=== PATIENT | female | born 1955 | race Caucasian/White ===

== ENCOUNTER 2023-12-16 17:12 | Inpatient (IN) | payer OTHER, SELFPAY ==
[2023-12-16] VITALS (12 sets, daily range): BP systolic 112–168; BP diastolic 63–120; BMI 23.7
--- NOTE | 2023-12-16 09:16 | ED.GENMED ---
History of Present Illness
<Yuliana Vences PA-C - Last Filed: 12/16/23 22:37>
General
Chief Complaint: Abdominal Symptoms
Source: patient
Exam Limitations: none
Time Seen by Provider: 12/16/23 08:59
Nursing documentation reviewed up to this point in time: agreed with
Travel History
Have you had any contact with someone who has COVID-19?: No
Do you have any symptoms of coronavirus? Fever > 100 degrees, chills, cough, shortness of breath, sore throat, loss of taste or smell, muscle aches, or headache?: No
History of Present Illness
History of Present Illness:
Patient is a 8-year-old female with history of primary biliary cirrhosis, autoimmune hepatitis, known gallstones presenting for evaluation of right upper quadrant abdominal pain with associated nausea. Patient states symptoms started yesterday
around 4 PM after eating a soft pretzel and some water. Pain was constant in the right upper quadrant until about 10 PM when she went to bed. She did have 1 episode of vomiting yesterday afternoon. She states that she felt somewhat better when
she woke up this morning but after eating yogurt and coffee the pain returned in the right upper quadrant has been constant since. While driving to the emergency room today she did state that she felt the pain was radiating to her back. She
endorses nausea but no vomiting this morning. She denies any fever, chills, diarrhea, constipation, urinary symptoms. She denies any chest pain, shortness of breath.
Patient reports social alcohol drinking. She is not a smoker and denies any other drug use. Patient denies any history of abdominal surgeries.
Patient does have a history of primary biliary cirrhosis and autoimmune hepatitis that is not currently treated. She did have an ultrasound performed last July which showed evidence of gallstones. She denies any episodes of pain prior.
Past History
<Yuliana Vences PA-C - Last Filed: 12/16/23 22:37>
Past History
ED Past Medical History: Cancer (Melanoma) and Other (Autoimmune hepatitis, primary biliary cirrhosis)
ED Past Surgical History: Orthopedic (Right knee surgery)
Social History
Tobacco: Non-smoker
Alcohol: Occasional
Drug: None
Living: with family
Family History
Family History: Other
Phy Exam
<Yuliana Vences PA-C - Last Filed: 12/16/23 22:37>
Physical Exam
Physical Exam:
General: Mild distress due to pain and non-toxic
Vitals: Hypertensive, otherwise vital signs stable; afebrile
HEENT: Atraumatic, normocephalic; pupils equal round and reactive to light bilaterally, extraocular muscles intact, protecting airway
Neck: appears supple, normal range of motion, no meningeal signs
CV: Regular rate and rhythm, heart sounds normal, no evidence of cyanosis
Resp: No evidence of respiratory distress, lungs clear bilaterally
Abd: Soft, tender in right upper quadrant epigastric region without rebound or guarding, non-distended; no CVA tenderness
Extremities: No deformities, no evidence of cyanosis or edema; deep PT pulses palpable and equal bilaterally
Neuro: alert and oriented x 3; grossly intact
Psych: Normal affect
Skin: Intact, no rashes
Course
<Yuliana Vences PA-C - Last Filed: 12/16/23 22:37>
Orders/Labs/Results
Orders:
Orders
12/16/23 09:15
0.9% Sodium Chloride 1000 ml [Nss] 1,000 ml IV BOLUS
HYDROmorphone [Dilaudid] 0.5 mg IV NOW STA
Ondansetron Injectable [Zofran] 4 mg IV NOW STA
US Abdomen Complete/Upper Urgent
Comment:
Reason For Exam: RUQ pain, known history gallstones
12/16/23 09:22
Complete Blood Count/With Diff Urgent
Comprehensive Metabolic Panel Urgent
Lipase Urgent
12/16/23 Lunch
Regular
12/16/23 12:55
INR [Prothrombin Time] Routine
12/16/23 13:05
MR Abdomen W/o & W Contrast Routine
Comment:
Reason For Exam: hx PBC increased LFT's
Recent pill cam endoscopy?: No
12/16/23 15:53
Consult Interventional Radiology [IRAD CONSULT] Routine
Consulting Provider: Ruth Ann Tsai
Was physician already notified: Yes
Reason for consult: elevated LFT and abd pain h/o AIH and PBC
12/16/23 16:48
Admit/Transfer Patient As Directed
Co-Sign Provider:
Level of Care: Inpatient admission
Assign to:: Medical/Surgical
Physician / Group: Gerardo
Diagnosis: Abdo pain with significant abnormal LFTs
Reason for Hospitalization: see progress note
Expected length of stay greater than two midnights?: Yes
ELOS- Estimated Length of Stay in days: 3
I certify the patient meets the requirements for IP care: Yes
12/16/23 16:49
Code Status As Directed
Resuscitation Status: Full Code
12/16/23 17:00
Ursodiol [Actigall] 300 mg PO DAILY
12/16/23 18:46
Acetaminophen [Tylenol] 650 mg PO Q4HPRN PRN
Enoxaparin Sodium [Lovenox] 40 mg SC QPM
12/16/23 18:46
GASTROINTESTINAL CONSULT Routine
Consulting Provider: Keisha Pedroza
Was physician already notified: Yes
Reason for consult: abnormal LFTs
Activity As Directed
Activity Level: As Tolerated
I&O [Intake/ Output] As Directed
Frequency: q12h
DX Deep Vein Thrombosis Video Routine
12/17/23 Breakfast
NPO
Allow oral meds: Yes
Allow clear liquids: 4hrs prior to procedure
NPO with Ice Chips: Yes
Comment: may have unrestricted clear liquid up to 4 hrs prior to scheduled procedure
Comprehensive Metabolic Panel IN AM
Abnormal Lab Results
12/16/23
09:22
Absolute Lymphs (auto) 1.0 L 10^3/uL
(1.2-3.4)
Lymphocytes % 17.2 L %
(20.5-51.1)
Potassium 3.4 L mmol/L
(3.5-5.1)
Glucose 109 H mg/dl
(70-99)
Total Bilirubin 1.8 H mg/dl
(0.2-1.3)
AST 139 H U/L
(14-36)
ALT 131 H U/L
(0-35)
Alkaline Phosphatase 728 H U/L
(38-126)
12/16/23 09:22
12/16/23 09:22
Vital Signs
Initial and Last Documented VS:
Initial Vital Signs
Temp Pulse Resp BP Pulse Ox
97.7 F 68 16 168/120 98
12/16/23 08:53 12/16/23 08:53 12/16/23 08:53 12/16/23 08:53 12/16/23 08:53
Last Documented Vital Signs
Temp Pulse Resp BP Pulse Ox
97.8 F 68 18 136/71 98
12/16/23 18:40 12/16/23 18:40 12/16/23 18:40 12/16/23 18:40 12/16/23 18:40
Bernardinolt;Brock Boyd, - Last Filed: 12/16/23 11:41>
Orders/Labs/Results
Orders:
Orders
12/16/23 09:15
0.9% Sodium Chloride 1000 ml [Nss] 1,000 ml IV BOLUS
HYDROmorphone [Dilaudid] 0.5 mg IV NOW STA
Ondansetron Injectable [Zofran] 4 mg IV NOW STA
US Abdomen Complete/Upper Urgent
Comment:
Reason For Exam: RUQ pain, known history gallstones
12/16/23 09:22
Complete Blood Count/With Diff Urgent
Comprehensive Metabolic Panel Urgent
Lipase Urgent
12/16/23 Lunch
Regular
12/16/23 12:55
INR [Prothrombin Time] Routine
12/16/23 13:05
MR Abdomen W/o & W Contrast Routine
Comment:
Reason For Exam: hx PBC increased LFT's
Recent pill cam endoscopy?: No
12/16/23 15:53
Consult Interventional Radiology [IRAD CONSULT] Routine
Consulting Provider: Ruth Ann Tsai
Was physician already notified: Yes
Reason for consult: elevated LFT and abd pain h/o AIH and PBC
12/16/23 16:48
Admit/Transfer Patient As Directed
Co-Sign Provider:
Level of Care: Inpatient admission
Assign to:: Medical/Surgical
Physician / Group: Gerardo
Diagnosis: Abdo pain with significant abnormal LFTs
Reason for Hospitalization: see progress note
Expected length of stay greater than two midnights?: Yes
ELOS- Estimated Length of Stay in days: 3
I certify the patient meets the requirements for IP care: Yes
12/16/23 16:49
Code Status As Directed
Resuscitation Status: Full Code
12/16/23 17:00
Ursodiol [Actigall] 300 mg PO DAILY
12/16/23 18:46
Acetaminophen [Tylenol] 650 mg PO Q4HPRN PRN
Enoxaparin Sodium [Lovenox] 40 mg SC QPM
12/16/23 18:46
GASTROINTESTINAL CONSULT Routine
Consulting Provider: Keisha Pedroza
Was physician already notified: Yes
Reason for consult: abnormal LFTs
Activity As Directed
Activity Level: As Tolerated
I&O [Intake/ Output] As Directed
Frequency: q12h
DX Deep Vein Thrombosis Video Routine
12/17/23 Breakfast
NPO
Allow oral meds: Yes
Allow clear liquids: 4hrs prior to procedure
NPO with Ice Chips: Yes
Comment: may have unrestricted clear liquid up to 4 hrs prior to scheduled procedure
Comprehensive Metabolic Panel IN AM
Abnormal Lab Results
12/16/23
09:22
Absolute Lymphs (auto) 1.0 L 10^3/uL
(1.2-3.4)
Lymphocytes % 17.2 L %
(20.5-51.1)
Potassium 3.4 L mmol/L
(3.5-5.1)
Glucose 109 H mg/dl
(70-99)
Total Bilirubin 1.8 H mg/dl
(0.2-1.3)
AST 139 H U/L
(14-36)
ALT 131 H U/L
(0-35)
Alkaline Phosphatase 728 H U/L
(38-126)
12/16/23 09:22
12/16/23 09:22
Vital Signs
Initial and Last Documented VS:
Initial Vital Signs
Temp Pulse Resp BP Pulse Ox
97.7 F 68 16 168/120 98
12/16/23 08:53 12/16/23 08:53 12/16/23 08:53 12/16/23 08:53 12/16/23 08:53
Last Documented Vital Signs
Temp Pulse Resp BP Pulse Ox
97.8 F 68 18 136/71 98
12/16/23 18:40 12/16/23 18:40 12/16/23 18:40 12/16/23 18:40 12/16/23 18:40
<Yuliana Vences PA-C - Last Filed: 12/16/23 22:37>
MDM/Problems Addressed
Differential Diagnosis Includes:
Biliary colic, cholecystitis, choledocholithiasis, cholangitis, pancreatitis, appendicitis, GERD, gastritis,
MDM/Problems Addressed:
Patient is a 68-year-old female with history as documented presenting for evaluation of persistent right upper quadrant pain with associated nausea and vomiting since yesterday. Symptoms started after eating. No fever, chills, diarrhea,
constipation, urinary symptoms. Patient's vital signs are stable upon arrival, she is afebrile. Physical exam as document above. She is in mild distress due to pain, although nontoxic-appearing. She is moderately tender in right upper quadrant
without rebound or guarding. Given known history of gallstones�will check basic labs, lipase. Will check ultrasound. Dilaudid/Zofran. IV fluids. Will reassess.
Labs noted. CBC without any clinically significant abnormalities. CMP shows elevation in total bilirubin to 1.8. AST, ALT, alkaline phosphatase are all elevated. This does appear to be chronic based on patient's history of known primary biliary
cirrhosis and autoimmune hepatitis. Ultrasound is pending
10:50AM: Into reassess patient at bedside. Patient reports significant improvement in pain after Dilaudid. Resting much more comfortably. Ultrasound report pending
Ultrasound shows gallstones but no evidence of cholecystitis. There is an increase in dilation of CBD in comparison ultrasound performed 6 months ago. Discussed with GI. They recommend MRCP while in emergency department. MRCP pending
MRCP shows no evidence of obstructing stone in the CBD. Discussed with GI who spoke with tent assembler on-call. He recommends admission for liver biopsy tomorrow prior to initiating treatment. Interventional radiology has been consulted for liver
biopsy tomorrow. Discussed with hospitalist. Patient will be admitted.
Chronic conditions affecting care:
Primary biliary cirrhosis, autoimmune hepatitis, cholelithiasis
Acute Exacerbation and/or Progression of Chronic Illness:
N/A
<Yuliana Vences PA-C - Last Filed: 12/16/23 22:37>
*Radiology
Radiology exam reviewed: preliminary read by ED provider and radiology read reviewed
*Pulse Oximetry
Patient hypoxic: no
*EKG
Interpreted by ED Provider?: NA
*Dental Office Receptionist Interpretation
Rate: Dental Office Receptionist- N/A
*Critical Care Note
Total Time (30-74mins, 75-104mins- exclusive of procedures): Not Applicable
Data Reviewed
Review of Other/Old Records Reveals: Labs, Records and Radiology Studies
Source: patient and previous hospital records
<Yuliana Vences PA-C - Last Filed: 12/16/23 22:37>
Patient Management
Discussion with other providers: Hospitalist and Mobile Phlebotomist (GI)
Escalation/DeEscalation of care consider admission/obs:
Admit for liver biopsy
ED Attending Note
<Yuliana Vences PA-C - Last Filed: 12/16/23 22:37>
-
Portions of this chart may have been created with voice recognition software.� Occasional wrong word or��sound alike� substitutions may have occurred due to the inherent limitations of voice recognition software.
<Brock Boyd DO - Last Filed: 12/16/23 11:41>
ED Attending Note
Patient seen and examined by attending physician: Yes
I performed the substantive portion of visit, reviewed & personally made and approve the management plan that is documented in note by myself or ТАТЬЯНА.: Yes
I performed a history and physical exam of patient and discussed management with resident, I reviewed resident's note and agree with documented findings and plan of care.: Yes
ED Attending Note:
I evaluated the patient at bedside. The patient feels markedly improved after meds given. LFT abnormality is chronic however she does have a more distended CBD currently.
Discharge Plan
Departure
Patient Disposition: Admit
Date of Disposition: 12/16/23
Time of Disposition: 16:09
Presentation/result/management discussed w/ accepting MD/DO: Hospitalist
Discharge Problem:
Abdominal pain, Elevated liver enzymes
Interventions
Interventions:
*Risk Screen - Suicide Last Done: 12/16/23 09:23
*General Assessment Last Done: 12/16/23 09:23
*Neglect/Abuse Screening Last Done: 12/16/23 09:23
ED- Fall Risk Assessment Last Done: 12/16/23 18:30
*ED COVID-19 Vaccine History Last Done: 12/16/23 08:53
*Nursing Disposition Last Done: 12/16/23 18:30
YZ-Kmtdgj-Sdobohzexl Assessment Last Done: 12/16/23 09:24
Discharge Date and Time
Discharge Date/Time: 12/16/23 18:30
[2023-12-16] MEDS: NSS 1000 IV (09:28)
[2023-12-16] MEDS: ZOFRAN 4 MG IV (09:29)
[2023-12-16] MEDS: DILAUDID 0.5 MG IV (09:29)
[2023-12-16 09:52] LABS: % Basophils 0.9 % (0-2); % Eosinophils 3.6 % (0-6); % Immature Granulocytes 0.4 % (0-0.5); % Lymphocytes 17.2 % (20.5-51.1); % Monocytes 6.5 % (1.7-9.3); % Neutrophils 71.4 % (42.2-75.2); Absolute Basophils 0.1 10^3/uL (0-0.2); Absolute Eosinophils 0.2 10^3/uL (0-0.7); Absolute Monocytes 0.4 10^3/uL (0.1-0.6); Mean Corp Hgb Conc. 34.2 g/dL (33.0-37.0); Mean Corpuscular Hgb 30.3 pg (27.0-31.0); Mean Corpuscular Volume 88.6 fL (81.0-99.0); Mean Platelet Volume 9.6 fL (7.4-10.4); Nucleated Red Blood Cells % 0 %; Platelet Count 192 10^3/uL (130-400); Red Blood Cell Count 4.29 10^6/uL (4.20-5.40); Red Cell Dist. Width 12.2 % (11.5-14.5); White Blood Cell Count 5.5 10^3/uL (4.8-10.8)
[2023-12-16 10:05] LABS: ALT (SGPT) 131 U/L (0-35); AST (SGOT) 139 U/L (14-36); Alkaline Phosphatase 728 U/L (38-126); Blood Urea Nitrogen 15 mg/dl (7-17); Calcium 9.5 mg/dl (8.4-10.2); Carbon Dioxide 29 mmol/L (22-30); Chloride 102 mmol/L (98-107); Estimated Creatinine Clearance 65 ml/min; Glucose 109 mg/dl (70-99); Lipase 187 U/L (23-300); Potassium 3.4 mmol/L (3.5-5.1); Sodium 136 mmol/L (135-145); Total Bilirubin 1.8 mg/dl (0.2-1.3); Total Protein 7.8 g/dl (6.3-8.2); eGFR > 60.00
--- NOTE | 2023-12-16 11:58 | CON.GI ---
Addendum entered and electronically signed by Keisha Serra Do, MD 12/16/23 16:02:
I saw and examined the patient.
The DESULFURIZER MACHINE's note was reviewed and I agree with the note.
Comment: Angelica is a 68yo W with h/o remote melanoma and AIH/PBC overlap diagnosed in [address] Luna with urosodiol, prednisone, and imuran. She was lost to follow up after Dr Luna left practice and stopped all her liver
meds due to concern of cancer. She is admitted for 2 days of RUQ abd pain with nausea/vomiting. Exam VSS, thin appearing TTP in epigastric to right side. no icterus or jaundice. Labs reviewed. Significant AP in 700s with elevations in LFTs.
Imaging MRI/MRCP with mild pericholecystic edema, trace ascites, focal adenomyomatosis, 8mm CBD no mass/bile duct stricture.
Impression
- Abd pain with nausea vomiting
- Elevated LFT
Suspect flare of AIH/PBC overlap
- H/o AIH/PBC overlap
Not on therapy
- Fatty liver
- Remote melanoma
- Remote SSC of face
Recommendations
- MRI reviewed
- Start ursodiol 300mg daily (15mg/kg) dosing
- Case d/w chicken boner Dr Donald. Recommend liver bx for restaging before consideration of steroids
- Regular diet. NPO at [place] for liver bx tomorrow. IR consulted and aware
- Check viral hepatitis serologies
- Need close FU with Dr Donald upon hosp d/c
Will follow with you
Original Note:
Consultation
-
Date/Time Consultation Requested: 12/16/23 1140
Date/Time Consultation Performed: 12/16/23 1145
Requesting Provider: Yuliana Farrell PA-C
Performing Provider: LISA Oro, Keisha Pedroza MD
Reason for Consultation: hx primary biliary cirrhosis with N/V/abd pain
Medical History
Chief Complaint / HPI
Chief Complaint: RUQ pain
History of Present Illness:
Pt is a 68yo presents hx melanoma chest, squamous cell CA of face, fatty liver, cholelithiasis, elevated LFT's with work up revealing primary autoimmune hepatitis- PBC with overlap syndrome around 2014. She had followed with Dr. Luna in past on
Ursodiol, Prednisone and at some point Entocort and Azathioprine. She admits when Dr. Luna left she did not follow with any MD. She related having some side effects of medication and noted concern for brain cancer with meds that she stopped all
therapy. She has been doing well with chronic LFT elevation followed by PCP and now presents with onset of nausea, vomiting bilious emesis and abdominal pain since 12/14. Abdominal pain was upper abdominal improved with pain meds in ER. On
admission US with diffuse heterogenous hepatic echotexture likely with hx PBC, cholelithiasis with mild GBWT, dilation of CBD 1.1 cm no calculous or filling defect. splenomegaly
Labs on admission with bili 1.8, AST 139, ALT 131, alk phos 728. Last OP labs from 06/2023 with bili 1, AST 90, [id number], and alk phos 735.
Pt denies dysphagia, GERD, hematemesis, diarrhea, constipation or rectal bleeding. Last EGD 2012 esophagitis, gastritis , 2020 colon with 5 mm benign polyp IH. Pt denies Tylenol use. She admits to vitamin supplement but has been off then
for a few weeks.
Past Medical History
Past Medical History: Cancer (melanoma chest and prior squamous cell CA face) and Other (primary biliary cirrhosis, autoimmune hepatitis, gallstones, fatty liver )
Past Surgical History: Orthopedic (right knee surgery)
Social History
Alcohol: Occasional
Drug: None
Living: With Family (lives with daughter )
Employment: Retired
Family History
Family History: Other (father with colon CA aunt with hx manolo)
Allergies / Home Medications
Allergy/AdvReac Type Severity Reaction Status Date / Time
No Known Allergies Allergy Verified 12/16/23 08:56
�Medication �Instructions �Recorded
ursodiol 300 mg capsule 300 mg PO BID 11/24/14
Review of Systems
-
History Source: Patient
Constitutional: Reports No Symptoms
EENT: Reports No Symptoms
Respiratory: Reports No Symptoms
Cardiac: Reports No Symptoms
Abdomen/GI: Reports Abdominal Pain, Nausea and Vomiting
: Reports No Symptoms
Musculoskeletal: Reports No Symptoms
Skin: Reports No Symptoms
Neurological: Reports Weakness
Endocrine: Reports No Symptoms
Hematologic/Lymphatic: Reports No Symptoms
Vital Signs
Temp Pulse Resp BP Pulse Ox
97.7 F 68 16 126/68 97
12/16/23 08:53 12/16/23 08:53 12/16/23 08:53 12/16/23 11:36 12/16/23 11:45
Physical Exam
Exam
General: Well Developed and Well Nourished
HEENT: Normocephalic, Anicteric and Moist Mucous Membranes
Respiratory: Clear
Cardiac: Regular Rhythm
GI: Soft, Non Distended and Tender (mild upper abdominal pain )
Musculoskeletal: No Clubbing and No Cyanosis
Skin: Warm and Dry
Neuro: Awake, Alert and AO x 3
Hematologic/Lymphatic: Lymphadenopathy
Psych: Calm
Results
WBC 5.5 10^3/uL (4.8-10.8) 12/16/23 09:22
Hgb 13.0 g/dL (12.0-16.0) 12/16/23 09:22
Hct 38.0 % (37.0-47.0) 12/16/23 09:22
MCV 88.6 fL (81.0-99.0) 12/16/23 09:22
Plt Count 192 10^3/uL (130-400) 12/16/23 09:22
Absolute Neuts (auto) 4.0 10^3/uL (1.4-6.5) 12/16/23 09:22
Sodium 136 mmol/L (135-145) 12/16/23 09:22
Potassium 3.4 mmol/L (3.5-5.1) L 12/16/23 09:22
Chloride 102 mmol/L (98-107) 12/16/23 09:22
Carbon Dioxide 29 mmol/L (22-30) 12/16/23 09:22
BUN 15 mg/dl (7-17) 12/16/23 09:22
Creatinine 0.6 mg/dL (0.6-1.0) 12/16/23 09:22
Calcium 9.5 mg/dl (8.4-10.2) 12/16/23 09:22
Total Bilirubin 1.8 mg/dl (0.2-1.3) H 12/16/23 09:22
AST 139 U/L (14-36) H 12/16/23 09:22
ALT 131 U/L (0-35) H 12/16/23 09:22
Alkaline Phosphatase 728 U/L (38-126) H 12/16/23 09:22
Lipase 187 U/L (23-300) 12/16/23 09:22
Diagnostic Image Results:
12/15/22 US Abdomen Complete/Upper
1. Diffuse heterogeneous hepatic echotexture most likely related to the history of primary biliary cirrhosis.
2. Cholelithiasis. Mild gallbladder wall thickening. There is no abnormal dilation of the gallbladder, no pericholecystic fluid, and negative sonographic Do sign. Mild wall thickening may be related to chronic inflammatory change.
3. Dilation of the common bile duct 1.1 cm in diameter. No calculi or filling defects identified sonographically within the common bile duct.
4. Splenomegaly.
Prior GI Procedures:
EGD: 01/2013 Joseph - Esophagitis. Biopsied.
- Z-line irregular,.
- Gastritis. This was biopsied.
- Gastritis. This was biopsied.
- Normal first part of the duodenum. This was biopsied.
Colonoscopy: 08/2021 Jeremy - The examined portion of the ileum was normal.
- One 5 mm polyp at the ileocecal valve. Resected and
retrieved.
- Internal hemorrhoids.
Assessment / Plan
-
Pt is a 68yo presents hx melanoma chest, squamous cell Ca of face, elevated LFT's with work up revealing primary autoimmune hepatitis- PBC with overlap syndrome around 2014. She had followed with Dr. Luna in past on Ursodiol, Prednisone and at
some point Entocort and Azathioprine. She admits when Dr. Luna left she did not follow with any MD. She related having some side effects of medication and noted concern for brain cancer with meds that she stopped all therapy. She has been doing
well with chronic LFT elevation followed by PCP and now presents with onset of nausea, vomiting bilious emesis and abdominal pain since 12/14. Abdominal pain was upper abdominal improved with pain meds in ER. On admission US with diffuse
heterogenous hepatic echotexture likely with hx PBC, cholelithiasis with mild GBWT, dilation of CBD 1.1 cm no calculous or filling defect. splenomegaly
Labs on admission with bili 1.8, AST 139, ALT 131, alk phos 728. Last OP labs from 06/2023 with bili 1, AST 90, [id number], and alk phos 735.
-abdominal pain with nausea/vomiting
-elevated LFT's
-hx overlap/PBC autoimmune hepatitis
Other med problems:
melanoma
squamous cell CA
osteoporosis
cholelithiasis
fatty liver
PLAN:
etiology of syptom related to PBC/overlap with obstructive process with LFT elevation but not far from prior labs vs gastroenteritis vs other
plan for MRI/MRCP
trend labs
will review with Dr. Pedroza if antibiotics needed
discussed with patient need for GI/hepatology follow up for continued management of disease process-- pt state she has been hesitant with concern for medication side effects and did not want to go downtown for treatment
-
-
Thank you for consultation and allowing me to participate in the patient's care. Please call the editorial cartoonist GI physician during the after hours with any questions or concerns.
[2023-12-16 13:14] LABS: INR 1.01; PT 13.1 Sec (11.4-14.6)
--- NOTE | 2023-12-16 16:03 | W.PN.UPDATE ---
Update Note
Progress Note Update
Billing purposes
Over 50mins of time was spent with patient, counseling reviewing images and coordinating care with ER and hepatology/DrSass
--- NOTE | 2023-12-16 16:55 | HPS.HSE ---
Family Physician
-
Family Physician: Clayton Mohan
Chief Complaint
-
Abdominal pain
History of Present Illness
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
Asked today after she had a bite of pretzel and she developed an acute onset of abdominal pain associated with vomiting. She was able to get some sleep last night. This morning when she got up she is again started to have abdominal pain with
vomiting so presented to the ER.
Currently without abdominal pain.
No fever or chills.
Denies any prior history of peptic ulcer disease.
She otherwise states she was in her usual state of health.
She is currently not on any medication.
Medical History
Past Medical History
Past Medical History: Reports Other (AIH/PBC)
Past Surgical History: Reports None
Social History
Tobacco: Non-smoker
Alcohol: Occasional
Drug: None
Living: With Family
Employment: Retired
Family History
Family History: Not pertinent
Allergies / Home Medications
Allergies reflects when Allergies were last updated in [facility].
Home Medications with original date entered in [facility]
Allergy/Medication List:
Allergies
Allergy/AdvReac Type Severity Reaction Status Date / Time
No Known Allergies Allergy Verified 12/16/23 08:56
Home Medications
No Meds [No Current Medications] 12/16/23
Review of Systems
-
A 12 point ROS was completed and negative except as noted: Yes
Physical Exam
Vital Signs
Vital Signs
Temp Pulse Resp BP Pulse Ox
97.7 F 68 16 126/68 97
12/16/23 08:53 12/16/23 08:53 12/16/23 08:53 12/16/23 11:36 12/16/23 11:45
Physical Exam
General: No Apparent Distress
HEENT: Moist mucous membranes
Respiratory: Clear
Cardiac: S1/S2 and Regular Rhythm
GI: Soft and Non Tender
Musculoskeletal: No Edema
Neuro: AO x 3
Psych: Calm
Laboratory Results
-
12/16/23 09:22
12/16/23 09:22
Laboratory Results
PT 13.1 Sec (11.4-14.6) 12/16/23 12:55
INR 1.01 12/16/23 12:55
Total Bilirubin 1.8 mg/dl (0.2-1.3) H 12/16/23 09:22
AST 139 U/L (14-36) H 12/16/23 09:22
ALT 131 U/L (0-35) H 12/16/23 09:22
Alkaline Phosphatase 728 U/L (38-126) H 12/16/23 09:22
Lipase 187 U/L (23-300) 12/16/23 09:22
Data Reviewed
-
MRI: Report Reviewed by me (mri abdomen)
Lab Data: Labs Reviewed by me
Impression/Plan
-
Acute abdominal pain with abnormal LFTs without significant elevation in alkaline phosphatase seems to be no different than from 2014. It was acute onset and episodic. Abdominal imaging including ultrasound and MRI of the abdomen shows multiple
small gallstones. There is 0.4 cm cystic foci in the gallbladder compatible with adenomyomatosis. Mild pericholecystic edema noted which is felt nonspecific. Currently without any abdominal tenderness. No evidence of choledocholithiasis or
biliary stricture or mass. Slightly prominent extrahepatic biliary ducts noted.
Clinical symptomatology concerning for biliary colic but no obstructing CBD stones.
Spike Cheng states that I get him a nonspecific. Patient without any tenderness currently.
Consult surgery for eval of cholelithiasis/pericholecystic edema.
AIH/PBC -with abdominal LFTs with significant elevation often phosphatase which seems to be the same as of 2014. GI input noted. Planning on liver biopsy tomorrow for restaging and initiation of steroids again.
Full code
[2023-12-16] MEDS: ACTIGALL 300 MG PO (17:44)
[2023-12-16] MEDS: LOVENOX 40 MG SC (19:42)
[2023-12-17] VITALS (13 sets, daily range): BP systolic 65–142; BP diastolic 63–78
[2023-12-17 07:48] LABS: ALT (SGPT) 124 U/L (0-35); AST (SGOT) 120 U/L (14-36); Albumin 3.6 g/dl (3.5-5.0); Alkaline Phosphatase 674 U/L (38-126); Blood Urea Nitrogen 11 mg/dl (7-17); Calcium 9.3 mg/dl (8.4-10.2); Carbon Dioxide 28 mmol/L (22-30); Chloride 102 mmol/L (98-107); Estimated Creatinine Clearance 63 ml/min; Glucose 90 mg/dl (70-99); Potassium 4.2 mmol/L (3.5-5.1); Sodium 136 mmol/L (135-145); Total Bilirubin 1.1 mg/dl (0.2-1.3); Total Protein 7.3 g/dl (6.3-8.2); eGFR > 60.00
[2023-12-17] MEDS: ACTIGALL PO (08:05)
[2023-12-17 08:17] LABS: Hepatitis B Surface Antigen Negative (Negative)
[2023-12-17 08:34] LABS: Hepatitis B Surface Antibody Negative; Hepatitis C Antibody Negative (Negative)
--- NOTE | 2023-12-17 09:17 | CON.GS ---
Medical History
-
Chief Complaint: Epigastric abdominal pain
History of Present Illness:
Patient is a 68 yo F with a PMH of melanoma, SCC, and AIH/PBC. She presents with an acute episode of epigastric abdominal pain. Symptoms began acutely on 414 after eating a pretzel. The subsequent morning she had coffee and a yogurt with
persistent symptoms. She describes a sharp severe epigastric discomfort. Associated nausea and vomiting. No fevers or chills. She denies any jaundice, pale stools, or tea colored urine. She denies any prior attacks of similar pains. Of note,
she had previously followed with Dr. Luna here at [facility] for PBC. She had previously been on steroids as well as Entocort and Azathioprine. After Dr. Luna left and reading up on the side-effects of Azathioprine, she decided to stop all
medications. Her last EGD was in 2012. Ultrasound with cholelithiasis, mild gallbladder wall thickening, no dilation of the gallbladder, no pericholecystic fluid, and negative sonographic Do sign, but, bile duct 1.1 cm in diameter without any
evidence of choledocholithiasis, splenomegaly, diffuse heterogeneous hepatic echotexture. MRI with no evidence of choledocholithiasis or bile duct stricture, cholelithiasis with mild pericholecystic edema, focal adenomyomatosis, no comment on liver
cirrhosis.
Past Medical History
Past Medical History: Cancer (Melanoma and SCC) and Other (AIH and PBC)
Past Surgical History: None
Social History
Tobacco: Non-Smoker
Alcohol: Occasional
Drug: None
Living: With Family
Family History
Family History: Other (Mother s/p cholecystectomy)
Allergies / Home Medications
Allergy/AdvReac Type Severity Reaction Status Date / Time
No Known Allergies Allergy Verified 12/16/23 08:56
�Medication �Instructions �Recorded �Confirmed �Type
No Meds [No Current Medications] 12/16/23 12/16/23 History
Review of Systems
-
A 10 point review of systems was completed, and was negative except as per HPI.
Physical Exam
Vital Signs
Temp Pulse Resp BP Pulse Ox
98.0 F 68 16 109/65 95
12/17/23 07:46 12/17/23 07:46 12/17/23 07:46 12/17/23 07:46 12/17/23 08:10
12/16/23 12/17/23 12/18/23
06:59 06:59 06:59
Actual Weight 53.212 kg
Body Mass Index (BMI) 23.7
Lab Results
12/16/23 09:22
12/17/23 06:45
WBC 5.5 10^3/uL (4.8-10.8) 12/16/23 09:22
Hgb 13.0 g/dL (12.0-16.0) 12/16/23 09:22
Hct 38.0 % (37.0-47.0) 12/16/23 09:22
Plt Count 192 10^3/uL (130-400) 12/16/23 09:22
Abs Immat Gran (auto) 0.0 10^3/uL (0-0.05) 12/16/23 09:22
Neutrophils % 71.4 % (42.2-75.2) 12/16/23 09:22
Physical Exam
General: Well Developed, Well Nourished and No Apparent Distress
HEENT: Normocephalic and Anicteric
Respiratory: Non Labored Respirations
Cardiac: Regular Rhythm
GI: Soft, Non Tender (Negative Do's sign), Non Distended and Other (Non-peritoneal)
Musculoskeletal: No Edema
Skin: Warm and Dry
Neuro: Nonfocal/Grossly Intact
Data Reviewed
-
Ultrasound: Image Personally Visualized and interpreted and Report Reviewed by me
MRI: Image Personally Visualized and interpreted and Report Reviewed by me
Labs: Labs Reviewed by me
Old Records: Reviewed
Assessment / Plan
-
Patient is a 68 yo F with a h/o PBC p/w likely episode of passed choledocholithiasis versus biliary colic versus worsening of PBC
The natural history and pathophysiology of biliary and stone disease was discussed. Anatomy and current work-up reviewed. We discussed the relationship of stone disease to her primary biliary cirrhosis. Patients with PBC are at increased risk for
developing cholelithiasis, and can develop primary CBD stones. Given the episodic nature of her symptoms with rapid clinical improvement would favor that this is current episode was more related to stone disease versus acute worsening of her PBC.
Symptoms have completely resolved, labs improving. The utility of cholecystectomy in reducing stone burden and preventing future episodes of cholecystitis or choledocholithiasis were reviewed. Options for cholecystectomy during this admission
versus as an outpatient were discussed. Patient prefers outpatient; given her resolution in symptoms and isolated episode this is not unreasonable. Pending current workup and clinical course would follow-up in the general surgery office in 1 to 2
weeks.
Further workup and management of PBC per GI. Plans for a liver biopsy today. Will need to coordinate timing of her surgery as it relates to medical therapy.
-- Liver biopsy and management of PBC per GI
-- Can advance to D from GS perspective
-- Outpatient follow-up in 1-2 weeks to coordinate cholecystectomy
[2023-12-17 09:35] LABS: Hepatitis A Antibody, Total Negative (Negative)
--- NOTE | 2023-12-17 10:10 | CM ---
Addendum entered by Zeina Bazzi 12/17/23 15:34:
Patient s/p bx, plan d/c home no needs.
Original Note:
Patient seen bedside.
IA completed.
patient lives with daughter and son in law and gradchildren.
patient independent prior to admission. No assistive devices.
Drives.
No hx VM
Per patient for surgery today.
PCP: Dr Mohan
Pharmacy: [facility]
Plan:home no needs anticipated.
--- NOTE | 2023-12-17 10:21 | W.PN.GI.CBS2 ---
Addendum entered and electronically signed by LISA Krishnan 12/17/23 16:41:
message sent to GI office to arrange follow up with Dr. Pedroza -- PA/PROGRAM REVIEW DIRECTOR
Addendum entered and electronically signed by Geo Burns MD 12/17/23 14:37:
I saw and examined the patient.
The PROGRAM REVIEW DIRECTOR or PA's note was reviewed and I agree with the note.
Comment: Minimal pain post liver bx. No abd pain
ABD soft NT
REC:
Await liver path
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
LFTs slightly lower today
Increase Juan Daniel to 300 mg TID to reach recommended 15mg/kg Juan Daniel daily (750mg)
Addendum entered and electronically signed by LISA Krishnan 12/17/23 10:55:
NHI/AMA pending
Original Note:
Today's Communication / Plan
-
for liver biopsy today then consider steroids
appreciate surgical eval for eventual manolo
cont ursodiol 300mg daily (15mg/kg) dosing
Dr. Pedroza d/w toolmaker helper Dr Donald recommended liver biopsy
LFT's improved trend, INR stable at 1.01 with normal albumin and platelets
hepatitis neg
- Need close FU with Dr Donald upon hosp d/c
-long discussion with patient as wishes for conservative measure-- discussed consider telehealth with hepatology to continue monitoring. Pt states she would not proceed with liver transplant if needed as held with spouse with prolonged illness and
prefers conservative measures
Assessment / Plan
-
Pt is a 68yo W with h/o remote melanoma and AIH/PBC overlap diagnosed in [address] Luna with urosodiol, prednisone, and Azathioprine She was lost to follow up after Dr Luna left practice and stopped all her liver meds due to
concern of cancer. She is admitted for 2 days of RUQ abd pain with nausea/vomiting. No icterus or jaundice. US with diffuse heterogenous hepatic echotexture likely with hx PBC, cholelithiasis with mild GBWT, dilation of CBD 1.1 cm no calculous or
filling defect. splenomegaly . Labs on admission with bili 1.8, AST 139, ALT 131, alk phos 728. Last OP labs from 06/2023 with bili 1, AST 90, DRY011, and alk phos 735. Imaging MRI/MRCP with mild pericholecystic edema, trace ascites, focal
adenomyomatosis, 8mm CBD no mass/bile duct stricture.
12/15 MRI with and without contrast
1. No MRCP evidence for choledocholithiasis, bile duct stricture, or mass. Slightly prominent extrahepatic bile ducts measuring 8 mm in caliber. No significant intrahepatic ductal dilatation.
2. Cholelithiasis.
3. Mild pericholecystic edema, nonspecific and may be related to acute or chronic inflammation. Clinical correlation is recommended.
4. Focal adenomyomatosis at the level of the gallbladder fundus.
5. Trace perihepatic ascites.
- Abd pain with nausea vomiting
- Elevated LFT
-Suspect flare of AIH/PBC overlap not on therapy prior to admission
-mild pericholecystitis edema on MRI
other medical problems:
- Fatty liver
- Remote melanoma
- Remote SSC of face
osteoporosis
cholelithiasis
fatty liver
PLAN:
for liver biopsy today then consider steroids
appreciate surgical eval for eventual manolo
cont ursodiol 300mg daily (15mg/kg) dosing
Dr. Pedroza d/w toolmaker helper Dr Donald recommended liver biopsy
LFT's improved trend, INR stable at 1.01 with normal albumin and platelets
hepatitis neg
- Need close FU with Dr Donald upon hosp d/c
-long discussion with patient as wishes for conservative measure-- discussed consider telehealth with hepatology to continue monitoring. Pt states she would not proceed with liver transplant if needed as held with spouse with prolonged illness and
prefers conservative measures
Subjective
Subjective
Date of Service: December 17, 2023
feeling better, tolerated dinner last PM now NPO for liver biopsy
Objective
Data Reviewed
Laboratory Data:
Laboratory Results
12/16/23 09:22
12/17/23 06:45
Laboratory Results
PT 13.1 Sec (11.4-14.6) 12/16/23 12:55
INR 1.01 12/16/23 12:55
Total Bilirubin 1.1 mg/dl (0.2-1.3) 12/17/23 06:45
AST 120 U/L (14-36) H 12/17/23 06:45
ALT 124 U/L (0-35) H 12/17/23 06:45
Alkaline Phosphatase 674 U/L (38-126) H 12/17/23 06:45
Lipase 187 U/L (23-300) 12/16/23 09:22
Vital Signs and I&O:
Vital Signs
Temp Pulse Resp BP Pulse Ox
98.0 F 68 16 109/65 95
12/17/23 07:46 12/17/23 07:46 12/17/23 07:46 12/17/23 07:46 12/17/23 08:10
I&O
12/16/23 12/17/23 12/18/23
06:59 06:59 06:59
Intake Total 120 / 120
Output Total 0 / 0
Balance 120 / 120
Physical Exam
Physical Exam
HEENT: Anicteric and Moist mucous membranes
Cardiology: Normal Sinus Rhythm
Pulmonary: Clear
GI: Soft, Non Distended and Non Tender
Extremities: No Edema
Neuro: Non Focal
--- NOTE | 2023-12-17 12:56 | W.PN.HOSP.TC ---
Addendum entered and electronically signed by Berlin Carrillo MD 12/17/23 14:42:
DW IR Dr Mar -ok for dc in 3-4 hr if pain under control and vital signs are stable
DW Surgery Dr Moise - Cholecystectomy will be arranged as OP
DW GI -ok for dc; steriods once path is back
Total time of dc 32 min
Original Note:
Today's Communication/Plan
-
Follow recs from GI post liver bx
Follow with surgery regarding cholecystectomy
Assessment / Plan
Assessment / Plan
Acute abdominal pain with abnormal LFTs without significant elevation in alkaline phosphatase seems to be no different than from 2014. It was acute onset and episodic. Abdominal imaging including ultrasound and MRI of the abdomen shows multiple
small gallstones. There is 0.4 cm cystic foci in the gallbladder compatible with adenomyomatosis. Mild pericholecystic edema noted which is felt nonspecific. No evidence of choledocholithiasis or biliary stricture or mass. Slightly prominent
extrahepatic biliary ducts noted.
Clinical symptomatology concerning for biliary colic but no obstructing CBD stones.
Patient without any abdo pain further or tenderness currently.
Appt surgery input.
Pt would like to consider cholecystectomy
AIH/PBC -with abdominal LFTs with significant elevation often phosphatase which seems to be the same as of 2014. GI input noted. Planning on liver biopsy today for restaging and initiation of steroids again.
Full code
Anticipated Discharge: 24 - 48 hours
Subjective/Interval History
-
Date of Service: December 17, 2023
Complete resolution of abdominal pain. No nausea or vomiting.
No fever or chills.
Objective Data
-
Labs:
Laboratory Results
12/17/23
06:45
Sodium 136
Potassium 4.2
Chloride 102
Carbon Dioxide 28
BUN 11
Creatinine 0.6
Glucose 90
Calcium 9.3
Total Bilirubin 1.1
AST 120 H
ALT 124 H
Alkaline Phosphatase 674 H
Vital Signs:
Vital Signs
Temp Pulse Resp BP Pulse Ox
98.4 F 70 16 125/71 98
12/17/23 11:00 12/17/23 11:45 12/17/23 11:45 12/17/23 11:45 12/17/23 11:45
I&O
12/16/23 12/17/23 12/18/23
06:59 06:59 06:59
Intake Total 120 / 120
Output Total 0 / 0
Balance 120 / 120
Review of Systems
-
Respiratory: Denies Trouble Breathing
Cardiac: Denies Chest Pain
Neuro: Denies Dizzy
Physical Exam
-
General: No Apparent Distress
HEENT: Moist Mucous Membranes
GI: Soft, Nontender, Nondistended and Normal Bowel Sounds
Neuro: AO x 3
Data Reviewed
-
Labs: Labs Reviewed by me
--- NOTE | 2023-12-17 13:42 | PTCARENOTE ---
Rec'd pt from IR post liver biopsy. Denies pain. right lateral abdomen bandaid intact
--- NOTE | 2023-12-17 14:38 | W.PN.UPDATE ---
Update Note
Progress Note Update
For billing purposes
--- NOTE | 2023-12-17 14:39 | W.DS.TRANS ---
DC Summary - Senior Electronics Technician
-
Discharge Instructions:
Discharge Diagnosis/Procedures Biliary colic; cholelithiasis ; AIH/PBC s/p
liver biopsy on this admission
Diet Low Fat
Activity As tolerated
Driving Restrictions As prior to admission
Bathing Restrictions None
Instructions:
Stand-Alone Forms:
Changes to Home Medications: Yes
Discharge Medications:
DC Medications w/original date entered in [facility]
ursodiol 300 mg capsule 300 mg PO DAILY #30 caps 12/17/23
Home Medication Changes
Ursodiol
Pending Results: No
[2023-12-19 03:25] LABS: Mitochondrial M2 Ab, IgG >150.0 Units (0.0-24.9)
[2023-12-19 03:34] LABS: ANA, IgG Reflex to HEp-2 Detected (None Detected)
[2023-12-20 10:39] LABS: ANA Pattern Nuclear Dot; ANA, HEp-2, IgG Detected (<1:80); Cytoplasmic Pattern AMA; Cytoplasmic Pattern Titer >1:2560
== END 2023-12-17 16:07 | disposition home or self-care (01) | DRG 446 ==
LOC: 4 WEST ACU 17:12
PROVIDERS: Nurse Practitioner Adult Health; Physician Assistant; Radiology Diagnostic Radiology; ADMITTING PHYSICIAN Internal Medicine; CONSULT PHYSICIAN Internal Medicine Gastroenterology; CONSULT PHYSICIAN Surgery; EMERGENCY PHYSICIAN Emergency Medicine; FAMILY PHYSICIAN Internal Medicine
PROC: 0FB13ZX Excision of Right Lobe Liver, Percutaneous Approach, Diagnostic (ICD-10-PCS; 2023-12-17)
DX: K80.20 Calculus of gallbladder without cholecystitis without obstruction (principal); K75.4 Autoimmune hepatitis; K74.3 Primary biliary cirrhosis; K76.0 Fatty (change of) liver, not elsewhere classified; R16.1 Splenomegaly, not elsewhere classified; K64.8 Other hemorrhoids; M81.0 Age-related osteoporosis without current pathological fracture; Z85.820 Personal history of malignant melanoma of skin; Z80.0 Family history of malignant neoplasm of digestive organs
CPT/HCPCS: 88307; 47000; 74183; 76700; 76942; 80053; 83690; 85025; 85610; 86038; 86039; 86381; 86706; 86708; 86803; 87340; 88313; 88342; 96361; 96374; 96375; 99152; 99153; 99285; A9575

== ENCOUNTER → 2024-07-23 14:30 | Outpatient (REF) | payer OTHER, SELFPAY | LOC: WDC 14:30 | PROVIDERS: ATTENDING PHYSICIAN Internal Medicine | DX: Z12.31 Encounter for screening mammogram for malignant neoplasm of breast (principal); Z12.39 Encounter for other screening for malignant neoplasm of breast | CPT/HCPCS: 77063; 77067 ==

== ENCOUNTER 2025-07-01 06:31 | Day surgery (SDC) | payer OTHER, SELFPAY ==
[2025-06-22 13:58] VITALS: BMI 25.5
[2025-07-01] VITALS (9 sets, daily range): BP systolic 131–157; BP diastolic 63–99; BMI 25.5
[2025-07-01] MEDS: ROXICODONE 5 MG PO (20:12)
== END 2025-07-01 20:37 | disposition home or self-care (01) ==
LOC: SDS 06:31
PROVIDERS: ATTENDING PHYSICIAN Surgery; FAMILY PHYSICIAN Internal Medicine
DX: L98.9 Disorder of the skin and subcutaneous tissue, unspecified (principal)
CPT/HCPCS: 46922; 88307; 88312; 88341; 88342; 88365; 93005

== ENCOUNTER 2025-08-16 11:51 | Emergency (ER) | payer OTHER, SELFPAY ==
[2025-08-16 12:02] VITALS: BP 126/82
[2025-08-16 12:44] LABS: Hematocrit 46.6 % (37.0-47.0); Hemoglobin 15.8 g/dL (12.0-16.0); Mean Corp Hgb Conc. 33.9 g/dL (33.0-37.0); Mean Corpuscular Volume 87.9 fL (81.0-99.0); Nucleated Red Blood Cells % 0 %; Platelet Count 303 10^3/uL (130-400); Red Cell Dist. Width 12.5 % (11.5-14.5)
[2025-08-16 12:57] LABS: ALT (SGPT) 90 U/L (0-35); AST (SGOT) 77 U/L (14-36); Albumin 4.2 g/dl (3.5-5.0); Alkaline Phosphatase 498 U/L (38-126); Blood Urea Nitrogen 14 mg/dl (7-17); Calcium 9.3 mg/dl (8.4-10.2); Carbon Dioxide 25 mmol/L (22-30); Chloride 103 mmol/L (98-107); Glucose 100 mg/dl (70-99); Lipase 97 U/L (23-300); Potassium 3.7 mmol/L (3.5-5.1); Sodium 136 mmol/L (135-145); Total Protein 8.3 g/dl (6.3-8.2); eGFR > 60.00
[2025-08-16 13:09] LABS: Urine Character Slightly Cloudy (Clear)
[2025-08-16 13:23] LABS: Urine Squamous Cell >30 /LPF (Few); Urine White Cell 50-60 /HPF (0-5)
[2025-08-16 13:24] LABS: Urine Red Blood Cell 0-2 /HPF (0-2)
--- NOTE | 2025-08-16 15:23 | ED.GENMED ---
History of Present Illness
General
Chief Complaint: Abdominal Pain
Source: patient
Time Seen by Provider: 08/16/25 15:06
History of Present Illness
History of Present Illness:
70-year-old female with past medical history of primary biliary cirrhosis and autoimmune hepatitis, previous anal cancer presenting to the emergency department for evaluation of left lower quadrant abdominal pain that is been ongoing for 2 weeks,
worse over the last week but today patient was more concerned about the increasing pain, diarrhea and low-grade fever with a Tmax of 100 earlier today. Patient states that currently the pain is the only thing bothering her and notes that she has
had a hard time eating and drinking. She denies any history of similar. Denies any urinary symptoms. No known sick contacts, recent travel or recent antibiotics.
Past History
Past History
ED Past Medical History: Cancer (Melanoma) and Other (Autoimmune hepatitis, primary biliary cirrhosis)
ED Past Surgical History: Orthopedic (Right knee surgery)
Social History
Tobacco: Non-smoker
Alcohol: Occasional
Drug: None
Personal:
Living: with family
Family History
Family History: Other
Review of Systems
Review of Systems
All Other Systems: ROS reviewed and negative except as documented in HPI and ROS
Phy Exam
Physical Exam
Physical Exam:
GENERAL: Alert , in no apparent distress
EYE: clear conjunctiva b/l
HEAD: NCAT
ENT: o/p clr, dry mucous membranes
CARDIAC: Regular rate and rhythm .
LUNGS: Clear breath sounds bilaterally, no acute respiratory distress, no wheezes/rales/rhonchi
ABDOMEN: Soft, tenderness within the left lower quadrant, no r/g, no cvat
NEUROLOGICAL: Alert and oriented
SKIN: Warm and dry, skin intact.
MUSCULOSKELETAL: No edema, well perfused.
PSYCH: Normal and appropriate interaction.
Scores
Heart Failure Risk
Heart Failure Risk Score: Not Applicable
Heart Score for Chest Pain Patients
STEMI patient?: Not applicable
Withdrawal Assessment of Alcohol
Withdrawal Assessment Completed?: Not applicable
Course
Orders/Labs/Results
Orders:
Orders
08/16/25 12:21
Complete Blood Count/With Diff Urgent
Comprehensive Metabolic Panel Urgent
Lipase Urgent
Urinalysis Reflex To Culture Urgent
Date Specimen was Collected: 08/16/25
Time Specimen was Collected: 12:06
Urine Microscopic Reflex Cult Urgent
Urine Culture Urgent
CELSO Source: U
Specimen Description:
Date Specimen was Collected: 08/16/25
Time Specimen was Collected: 12:06
08/16/25 15:19
CT Abd/pelvis W Iv Cont Urgent
Comment:
Reason For Exam: LLQ pain
Abnormal Lab Results
08/16/25
12:21
Absolute Monos (auto) 0.8 H 10^3/uL
(0.1-0.6)
Glucose 100 H mg/dl
(70-99)
Total Bilirubin 1.7 H mg/dl
(0.2-1.3)
AST 77 H U/L
(14-36)
ALT 90 H U/L
(0-35)
Alkaline Phosphatase 498 H U/L
(38-126)
Total Protein 8.3 H g/dl
(6.3-8.2)
Urine Ketones 1+ A
(Negative)
Ur Occult Blood Reflex 2+ A
(Negative)
Urine Nitrite (Reflex) Positive A
(Negative)
Urine Bilirubin 2+ A
(Negative)
Urine Urobilinogen 2+ A
(Neg - 1+)
Leukocyte Esterase Rfl 3+ A
(Negative)
Urine WBC (Reflex) 50-60 A /HPF
(0-5)
Urine Albumin (Reflex) 3+ A
(Neg - Trace)
12/15/25 12:21
08/16/25 12:21
Vital Signs
Initial and Last Documented VS:
Initial Vital Signs
Temp Pulse Resp BP Pulse Ox
97.2 F 103 18 126/82 97
08/16/25 12:02 08/16/25 12:02 08/16/25 12:02 08/16/25 12:02 08/16/25 12:02
Last Documented Vital Signs
Temp Pulse Resp BP Pulse Ox
97.2 F 94 20 112/68 97
08/16/25 12:02 08/16/25 17:00 08/16/25 17:00 08/16/25 17:00 08/16/25 17:00
MDM/Problems Addressed
Differential Diagnosis Includes:
Diverticulitis
Colitis
Appendicitis
Infectious diarrhea
Dehydration
Electrolyte imbalance
Pancreatitis
Renal/ureteral colic
UTI
MDM/Problems Addressed:
70-year-old female presenting to the ER for evaluation of left lower quadrant abdominal pain x 2 weeks, worse over the last few days, today had a fever with Tmax of 100 also with some GI upset. On arrival here patient is mildly tachycardic which
could be volume driven. Will treat with fluids. Labs were initiated on arrival which do show elevated LFTs which is likely related to the patient's primary biliary cirrhosis/autoimmune hepatitis. Her urine is nitrite positive, 3+ leuks and 50-60
WBCs, will culture urine as patient is not exhibiting urinary symptoms but will likely treat with antibiotics. CT pending.
Chronic conditions affecting care: Other (Primary biliary cirrhosis)
*Radiology
Radiology exam reviewed: radiology read reviewed
*Pulse Oximetry
SaO2: 97
Oxygen Mode of Delivery: Room air
Patient hypoxic: no
*Critical Care Note
Total Time (30-74mins, 75-104mins- exclusive of procedures): Not Applicable
Data Reviewed
Review of Other/Old Records Reveals: Labs, Records and Radiology Studies
Source: patient and records
Patient Management
Escalation/DeEscalation of care consider admission/obs:
CT scan shows mild colitis. Based off patient's presentation, no fevers and normal white blood cell count I do suspect this is more inflammatory over infectious. At this time continue supportive care, if symptoms persist patient may need
antibiotics. Encouraged close follow-up with primary care provider. She is aware of return precautions to the ER. Stable for discharge home.
ED Attending Note
-
Portions of this chart may have been created with voice recognition software.� Occasional wrong word or��sound alike� substitutions may have occurred due to the inherent limitations of voice recognition software.
Discharge Plan
Departure
Patient Disposition: Home (Routine Discharge)
Date of Disposition: 08/16/25
Time of Disposition: 20:09
Patient with high blood pressure during this ER visit?: No
Discharge Problem:
Colitis
Instructions: Colitis (DC)
Prescriptions:
No Action
Fleet Enema 19-7 gram/118 mL Enema
118 ml LA PRE PROCEDURE
Referrals:
Clayton Mohan DO [Family Provider, Internal Medicine]
Interventions
Interventions:
*General Assessment Last Done: 08/16/25 12:02
*Neglect/Abuse Screening Last Done: 08/16/25 12:02
*ED COVID-19 Vaccine History Last Done: 08/16/25 15:39
*ED Influenza Vaccine History Last Done: 08/16/25 15:39
[facility] Risk Assessment Tool Last Done: 08/16/25 15:38
*Risk Screen - Suicide (C-SSRS) Last Done: 08/16/25 15:39
*Nursing Disposition Last Done: 08/16/25 20:24
KR-Lttrqf-Ulntksutnz Assessment Last Done: 08/16/25 15:38
Discharge Date and Time
Discharge Date/Time: 08/16/25 20:24
Print Language: MEXICAN
[2025-08-16 17:00] VITALS: BP 112/68
== END 2025-08-16 20:24 | disposition home or self-care (01) ==
LOC: EMR 11:51
PROVIDERS: Emergency Medicine; EMERGENCY PHYSICIAN Emergency Medicine; FAMILY PHYSICIAN Internal Medicine
DX: K52.9 Noninfective gastroenteritis and colitis, unspecified (principal); K75.4 Autoimmune hepatitis; Z85.048 Personal history of other malignant neoplasm of rectum, rectosigmoid junction, and anus; Z85.820 Personal history of malignant melanoma of skin
CPT/HCPCS: 99284; 74177; 80053; 81003; 81015; 83690; 85025; 87077; 87086; Q9967